=== PATIENT | male | born 1955 | race Caucasian/White ===

== ENCOUNTER 2016-12-24 08:51 | Day surgery (SDC) | payer BC ==
[~2016-12-24] VITALS: Ht 180.3 cm; Wt 170.5 kg
[~2016-12-24 08:51] MED LIST: ADIPEX-P37.5 MG PO; ASPI325T6 PO; BYSTOLIC10 MG PO; CELEXA 20MG20 MG/TAB PO; FERROUS SU325 MG/TAB PO; FOLIC ACID 40400 MCG PO; MILK OF MA400 MG/52 PO; NORCO 325 MG-7.1 TAB PO; OSTEO-BI-FLEX 21 TAB PO; PAXIL 20MG20 MG PO; ROXICODONE 55 MG/TAB PO; SENOKOT8.6 MG PO; SYNTHROID0.1 MG/TAB PO; SYNTHROID0.175 MG PO; SYNTHROID0.2 MG/TAB PO; TYLENOL 500MG500 MG PO; VITAMIN C PUR1000 MG PO; VITAMIN D1000 IU PO; VITAMINC1000TA PO
[2016-12-24 09:16] LABS: HEMATOCRIT 46.3 % (42.0-52.0); HEMOGLOBIN 15.8 g/dl (13.5-18.0); MEAN CELL VOLUME 95 fl (80.0-100.0); MEAN CORPUSCULAR HEMOGLOBIN 33 pg (27.0-31.0); MEAN CORPUSCULAR HGB CONC 34 g/dl (33.0-37.0); MEAN PLATELET VOLUME 11.6 fl (7.4-10.4); PLATELET COUNT 196 K/mm3 (130-400); RED BLOOD COUNT 4.86 M/mm3 (4.20-5.60); REDCELL DISTRIBUTION WIDTH-CV 12.3 % (11.5-14.5); WHITE BLOOD COUNT 6.2 K/mm3 (4.8-10.8)
[2016-12-24 09:32] LABS: CALCIUM 9.4 mg/dL (8.4-10.2); CREATININE, serum 1.13 mg/dL (0.66-1.25); POTASSIUM 4.6 mmol/L (3.4-5.0)
[2016-12-24] MEDS ORDERED: ASPIRIN E.C. 8181 MG PO (09:41)
[2016-12-24] MEDS ORDERED: TAMBOCOR150 MG PO (09:42)
[2016-12-24] MEDS ORDERED: XARELTO20 MG PO (09:43)
[2016-12-24 10:01] VITALS: BP 123/74; PULSE 76; TEMP 97.5
[2016-12-24 10:25] VITALS: BP 101/69; PULSE 51
[2016-12-24 10:30] VITALS: BP 113/70; PULSE 56
[2016-12-24 10:40] VITALS: BP 110/67; PULSE 54
[2016-12-24 10:59] VITALS: BP 113/66; PULSE 54
[2016-12-24 11:29] VITALS: BP 121/89; PULSE 60
== END 2016-12-24 11:40 | disposition home or self-care (01) ==
LOC: COL.RAD 08:51
PROVIDERS: Internal Medicine Cardiovascular Disease
DX: I48.0 Paroxysmal atrial fibrillation (principal); I10 Essential (primary) hypertension; Z79.82 Long term (current) use of aspirin; Z79.899 Other long term (current) drug therapy; Z87.891 Personal history of nicotine dependence; Z79.01 Long term (current) use of anticoagulants
CPT/HCPCS: J2704

== ENCOUNTER 2018-02-03 12:37 | Day surgery (SDC) | payer BC ==
[~2018-02-03] VITALS: Ht 180.3 cm; Wt 179.9 kg
[~2018-02-03 12:37] MED LIST changes: +ASPIRIN E.C. 8181 MG PO; +TAMBOCOR150 MG PO; +XARELTO20 MG PO
[2018-02-03 13:01] VITALS: BP 125/85; PULSE 41; TEMP 98.9
[2018-02-03 15:25] VITALS: BP 127/71; PULSE 47; TEMP 97.9
[2018-02-03 15:40] VITALS: BP 131/67; PULSE 42
[2018-02-03 15:55] VITALS: BP 131/80; PULSE 43
[2018-02-03 16:24] VITALS: BP 121/68; PULSE 41
== END 2018-02-03 16:35 | disposition home or self-care (01) ==
LOC: SDCO 12:37
DX: Z12.11 Encounter for screening for malignant neoplasm of colon (principal); Z86.010 Personal history of colon polyps; D12.8 Benign neoplasm of rectum; K57.30 Diverticulosis of large intestine without perforation or abscess without bleeding; K52.9 Noninfective gastroenteritis and colitis, unspecified; K64.0 First degree hemorrhoids; I10 Essential (primary) hypertension; E03.9 Hypothyroidism, unspecified; I48.91 Unspecified atrial fibrillation
CPT/HCPCS: OP; J2250; J2704; J7120

== ENCOUNTER 2018-12-21 08:35 | Inpatient (IN) | payer BC ==
[~2018-12-21] VITALS: Ht 180.3 cm; Wt 198.8 kg
[2018-12-21 08:55] VITALS: BP 122/83; PULSE 88; TEMP 98.1
[2018-12-21] MEDS ORDERED: VITAMIN D31000 I1 PO ×2 (09:31→09:32)
[2018-12-21 09:48] LABS: BASO # 0.1 (0.0-0.2); BASO % 0.9 % (0.0-2.0); EOS # 0.1 (0.0-0.7); EOS % 1.4 % (0-4.0); GRAN # 3.8 (1.4-6.5); GRAN % 64.4 % (42.2-75.2); HEMATOCRIT 45.5 % (42.0-52.0); HEMOGLOBIN 15.8 g/dl (13.5-18.0); LYMPH # 1.5 (1.2-3.4); LYMPH % 24.8 % (20.0-51.0); MEAN CELL VOLUME 95 fl (80.0-100.0); MEAN CORPUSCULAR HEMOGLOBIN 33 pg (27.0-31.0); MEAN CORPUSCULAR HGB CONC 35 g/dl (33.0-37.0); MEAN PLATELET VOLUME 11.5 fl (7.4-10.4); MONO # 0.5 (0.1-0.6); MONO % 8.2 % (1.7-9.3); PLATELET COUNT 170 K/mm3 (130-400); RED BLOOD COUNT 4.77 M/mm3 (4.20-5.60)
[2018-12-21 09:51] LABS: INR 1.2 (0.8-3.0); PROTHROMBIN TIME 13.8 SECONDS (9.7-12.8)
[2018-12-21 09:55] LABS: ALBUMIN 3.8 gm/dL (3.5-5.0); BILIRUBIN,TOTAL 0.4 mg/dL (0.0-1.0); CALCIUM 9.2 mg/dL (8.4-10.2); CREATININE, serum 0.89 mg/dL (0.66-1.25); MAGNESIUM 1.9 mg/dL (1.6-2.3); POTASSIUM 4.7 mmol/L (3.4-5.0); TOTAL PROTEIN 7.1 gm/dL (6.4-8.2)
[2018-12-21] MEDS ORDERED: BYSTOLIC10 MG PO (10:58)
[2018-12-21] MEDS ORDERED: TAMBOCOR150 MG PO (10:58)
--- NOTE | 2018-12-21 11:31 | NUR ---
Pt was admitted to room 352 for sotalol initation. He is awake and A/Ox4. Saline lock placed in left FA. Meds/allergies/pharm reviewed. Tele applied. Pt and were oriented to room and to staff, expressed understanding.
--- NOTE | 2018-12-21 11:37 | NUR ---
First visit from the internet marketing executive. No needs right now.
[2018-12-21 12:18] VITALS: BP 123/57; PULSE 77; TEMP 98
--- NOTE | 2018-12-21 12:57 | NUR ---
Report from Michelle PEDERSEN.
--- NOTE | 2018-12-21 15:06 | NUR ---
PT RESTING IN RECLINER ON PHONE. PT INDEPENDENT IN HALLS AND ROOM.
[2018-12-21 16:53] VITALS: BP 136/83; PULSE 79; TEMP 98.3
--- NOTE | 2018-12-21 18:47 | NUR ---
REPORT TO RAINA PEDERSEN.
--- NOTE | 2018-12-21 19:28 | NUR ---
Shift assessment complete. Pt resting in bedside recliner, awake, a&o, cooperative c cares. Pt reports being "a little light-headed", denies any other c/o. Reviewed side effects of sotalol, pt verbalized understanding. INT patent. Tele in place. Pt denies needs. Call light in reach, will monitor.
[2018-12-21 20:07] VITALS: BP 120/71; PULSE 60; TEMP 99.1
[2018-12-21 23:46] VITALS: BP 135/93; PULSE 76; TEMP 98.3
[2018-12-22 04:45] VITALS: BP 132/95; PULSE 78; TEMP 98.2
[2018-12-22 07:23] LABS: BASO # 0.1 (0.0-0.2); EOS # 0.1 (0.0-0.7); EOS % 1.9 % (0-4.0); GRAN # 3.6 (1.4-6.5); GRAN % 56.7 % (42.2-75.2); HEMATOCRIT 46.1 % (42.0-52.0); HEMOGLOBIN 15.8 g/dl (13.5-18.0); LYMPH # 1.8 (1.2-3.4); LYMPH % 28.8 % (20.0-51.0); MEAN CELL VOLUME 96 fl (80.0-100.0); MEAN CORPUSCULAR HEMOGLOBIN 33 pg (27.0-31.0); MEAN CORPUSCULAR HGB CONC 34 g/dl (33.0-37.0); MEAN PLATELET VOLUME 11.7 fl (7.4-10.4); MONO # 0.7 (0.1-0.6); MONO % 11.3 % (1.7-9.3); PLATELET COUNT 155 K/mm3 (130-400); RED BLOOD COUNT 4.82 M/mm3 (4.20-5.60); REDCELL DISTRIBUTION WIDTH-CV 12.1 % (11.5-14.5)
[2018-12-22 07:43] LABS: CALCIUM 8.9 mg/dL (8.4-10.2); CREATININE, serum 0.99 mg/dL (0.66-1.25); MAGNESIUM 2.2 mg/dL (1.6-2.3); POTASSIUM 4.7 mmol/L (3.4-5.0)
[2018-12-22 07:45] VITALS: BP 116/80; PULSE 51; TEMP 98.3
--- NOTE | 2018-12-22 09:20 | NUR ---
Pt is awake and A/Ox4, sitting up in the recliner. He denies pain or discomfort. Saline lock to left FA is free of complications. Heart remains irregular, Afib per tele. Pt is up as tolerated. Denies any other needs, will monitor.
[2018-12-22 11:47] VITALS: BP 112/64; PULSE 58; TEMP 99
--- NOTE | 2018-12-22 14:52 | NUR ---
SW met with patient about discharge planning. Patient lives independently at home with his . Patient's PCP is Dr Sam and he obtains prescriptions from [facility], [place]. Patient uses CPAP at home but no other DME is used and he does not use home health services. Patient does not have a DPOA and is not interested in that at this time.
[2018-12-22 15:39] VITALS: BP 111/85; PULSE 45; TEMP 97.9
--- NOTE | 2018-12-22 18:22 | NUR ---
Pt has had an overall uneventful shift. He continues to deny pain or discomfort. Ambulating in hallways without difficulty.
--- NOTE | 2018-12-22 19:40 | NUR ---
Shift assessment complete. PT resting in bedside recliner, awake, a&o, cooperative c cares. Pt denies pain or any other c/o. INT patent. Tele in place. Pt denies needs. Call light in reach, will monitor.
[2018-12-22 19:45] VITALS: BP 137/74; PULSE 68; TEMP 99
[2018-12-22 23:32] VITALS: BP 121/60; PULSE 84; TEMP 98.1
[2018-12-23 04:38] VITALS: BP 136/87; PULSE 81; TEMP 98.6
--- NOTE | 2018-12-23 07:29 | NUR ---
Sleeping soundly at this time. CPAP in place. The patient is resting on his side. The call light is in place.
--- NOTE | 2018-12-23 07:30 | NUR ---
Pt resting in chair.VSS.Pt on telemetry. Heart rate irregular at 82bpm.NPO status for cardioversion today.Reports no pain. INT intact, no redness or swelling. Pt reports no acute concerns at this time.
[2018-12-23 07:35] VITALS: BP 116/79; PULSE 82; TEMP 98.2
[2018-12-23 07:38] LABS: BASO # 0.1 (0.0-0.2); BASO % 0.7 % (0.0-2.0); EOS # 0.1 (0.0-0.7); EOS % 1.3 % (0-4.0); GRAN % 59.5 % (42.2-75.2); HEMATOCRIT 47.8 % (42.0-52.0); HEMOGLOBIN 16.7 g/dl (13.5-18.0); LYMPH % 28.8 % (20.0-51.0); MEAN CELL VOLUME 95 fl (80.0-100.0); MEAN CORPUSCULAR HEMOGLOBIN 33 pg (27.0-31.0); MEAN CORPUSCULAR HGB CONC 35 g/dl (33.0-37.0); MEAN PLATELET VOLUME 11.4 fl (7.4-10.4); MONO # 0.6 (0.1-0.6); MONO % 9.3 % (1.7-9.3); PLATELET COUNT 181 K/mm3 (130-400); RED BLOOD COUNT 5.01 M/mm3 (4.20-5.60); REDCELL DISTRIBUTION WIDTH-CV 12.3 % (11.5-14.5)
[2018-12-23 07:48] LABS: CALCIUM 9.1 mg/dL (8.4-10.2); CREATININE, serum 0.99 mg/dL (0.66-1.25); MAGNESIUM 2.2 mg/dL (1.6-2.3); POTASSIUM 4.5 mmol/L (3.4-5.0)
[2018-12-23] MEDS ORDERED: BYSTOLIC10 MG PO (08:56)
[2018-12-23] MEDS ORDERED: BETAPACE 120MG120 MG PO ×3 (08:57→09:09)
[2018-12-23] MEDS ORDERED: HYDROCORTISON28.4 GM TP (08:59)
--- NOTE | 2018-12-23 09:30 | NUR ---
Pt returns to room. Resting in bed after procedure.VSS. Pt voiced no concerns of pain. Refused food and water amd would like to rest.
[2018-12-23 09:45] VITALS: BP 121/74; PULSE 68; TEMP 9806
--- NOTE | 2018-12-23 13:24 | NUR ---
Discharge education completed with the patient. All questions answered and the patient was escorted out via wheelchair.
== END 2018-12-23 13:25 | disposition home or self-care (01) | DRG 309 ==
LOC: MEDICAL 08:35
PROVIDERS: ADMIT Internal Medicine Cardiovascular Disease
PROC: 5A2204Z Restoration of Cardiac Rhythm, Single (ICD-10-PCS; principal; 2018-12-23)
DX: I48.0 Paroxysmal atrial fibrillation (principal); Z68.44 Body mass index [BMI] 60.0-69.9, adult; I48.92 Unspecified atrial flutter; E66.01 Morbid (severe) obesity due to excess calories; I10 Essential (primary) hypertension; Z87.891 Personal history of nicotine dependence
CPT/HCPCS: J2250; J2704

== ENCOUNTER 2019-02-04 10:24 | Day surgery (SDC) | payer BC ==
[2019-02-04] VITALS (9 sets, daily range): BP systolic 115–153; BP diastolic 84–102; PULSE 60–71
[~2019-02-04 10:24] MED LIST changes: +BETAPACE 120MG120 MG PO; +HYDROCORTISON28.4 GM TP; +VITAMIN D31000 I1 PO
[2019-02-04] MEDS ORDERED: PACERONE200 MG PO (10:53)
[2019-02-04] MEDS ORDERED: VASOTEC 5MG5 MG/TAB PO (10:54)
[2019-02-04 11:26] LABS: HEMATOCRIT 44.5 % (42.0-52.0); HEMOGLOBIN 15.5 g/dl (13.5-18.0); MEAN CELL VOLUME 95 fl (80.0-100.0); MEAN CORPUSCULAR HEMOGLOBIN 33 pg (27.0-31.0); MEAN CORPUSCULAR HGB CONC 35 g/dl (33.0-37.0); PLATELET COUNT 151 K/mm3 (130-400); RED BLOOD COUNT 4.68 M/mm3 (4.20-5.60); REDCELL DISTRIBUTION WIDTH-CV 12.1 % (11.5-14.5)
[2019-02-04 11:29] LABS: PROTHROMBIN TIME 11.7 SECONDS (9.7-12.8)
[2019-02-04 11:35] LABS: CALCIUM 9.2 mg/dL (8.4-10.2); CREATININE, serum 0.99 (0.66-1.25); POTASSIUM 4.2 mmol/L (3.4-5.0)
--- NOTE | 2019-02-04 13:23 | NUR ---
ALL MEDICATIONS GIVEN WITH VERBAL ORDER AND READBACK WITH MD. SEE MERGE FOR ALL MEDICATION ADMIN TIMES. SEE MERGE FOR ALL RASS ASSESSMENTS DURING AND AFTER PROCEDURE. POSITIVE BARBEAU'S TEST IN THE RIGHT WRIST. NITRO PASTE APPLIED, REFER TO MAR.
--- NOTE | 2019-02-04 14:20 | NUR ---
Pt back to room 10 post cardiac cath. VSs and Ax0x3. Right radial site c/d/i and soft on palpation. Pt denies pain. resting comfortably in bed at this time.
--- NOTE | 2019-02-04 16:30 | NUR ---
Vitals stable post cardiac cath. 14cc of air removed from tr band site c/d/i. Pt tolerating fluids po without issue. Discharge instructions reviewed and signed. 20g removed from left ac intact. Pt wheeled out safely with present as line driver.
== END 2019-02-04 16:30 | disposition home or self-care (01) ==
LOC: COL.CAR 10:24
PROVIDERS: Internal Medicine Cardiovascular Disease
DX: I42.0 Dilated cardiomyopathy (principal); I10 Essential (primary) hypertension; E66.9 Obesity, unspecified; G47.33 Obstructive sleep apnea (adult) (pediatric); I48.0 Paroxysmal atrial fibrillation
CPT/HCPCS: C1769; J1644; J2250; J3010; Q9967

== ENCOUNTER → 2024-01-20 | Outpatient (CLI) | payer MEDICARE ==
[~2024-01-20] MED LIST changes: +PACERONE200 MG PO; +VASOTEC 5MG5 MG/TAB PO
== END ==
LOC: MHCPAIN 13:35
DX: M53.3 Sacrococcygeal disorders, not elsewhere classified (principal); M48.062 Spinal stenosis, lumbar region with neurogenic claudication; M48.10 Ankylosing hyperostosis [Forestier], site unspecified
CPT/HCPCS: G0463

== ENCOUNTER → 2024-02-23 | Outpatient (CLI) | payer MEDICARE ==
[~2024-02-23] MED LIST changes: +Iohexol 300 - 10 ML VIAL ONE; +Triamcinolone 40 MG/ML 1 ML VIAL ONE
== END ==
LOC: MHCPAIN 13:17
DX: M54.50 Low back pain, unspecified (principal); M53.3 Sacrococcygeal disorders, not elsewhere classified
CPT/HCPCS: J3301; Q9967

== ENCOUNTER → 2024-03-25 | Outpatient (CLI) | payer MEDICARE ==
[~2024-03-25] MED LIST changes: -Iohexol 300 - 10 ML VIAL ONE; -Triamcinolone 40 MG/ML 1 ML VIAL ONE
== END ==
LOC: MHCPAIN 15:30
DX: M53.3 Sacrococcygeal disorders, not elsewhere classified (principal); M48.062 Spinal stenosis, lumbar region with neurogenic claudication; M48.10 Ankylosing hyperostosis [Forestier], site unspecified
CPT/HCPCS: G0463

== ENCOUNTER → 2024-04-20 | Outpatient (CLI) | payer MEDICARE | LOC: MHCPAIN 15:27 | DX: M53.3 Sacrococcygeal disorders, not elsewhere classified (principal); M48.062 Spinal stenosis, lumbar region with neurogenic claudication; M47.816 Spondylosis without myelopathy or radiculopathy, lumbar region; M48.10 Ankylosing hyperostosis [Forestier], site unspecified | CPT/HCPCS: G0463 ==

== ENCOUNTER → 2024-06-17 | Outpatient (CLI) | payer MEDICARE | LOC: MHCPAIN 10:31 | DX: M48.062 Spinal stenosis, lumbar region with neurogenic claudication (principal); M47.816 Spondylosis without myelopathy or radiculopathy, lumbar region; M53.3 Sacrococcygeal disorders, not elsewhere classified; M48.10 Ankylosing hyperostosis [Forestier], site unspecified | CPT/HCPCS: G0463 ==

== ENCOUNTER → 2024-08-02 | Outpatient (CLI) | payer MEDICARE | LOC: MHCPAIN 11:01 | DX: M48.062 Spinal stenosis, lumbar region with neurogenic claudication (principal); M47.816 Spondylosis without myelopathy or radiculopathy, lumbar region; M53.3 Sacrococcygeal disorders, not elsewhere classified; M48.16 Ankylosing hyperostosis [Forestier], lumbar region | CPT/HCPCS: G0463 ==

== ENCOUNTER → 2024-08-26 | Outpatient (CLI) | payer MEDICARE ==
[~2024-08-26] MED LIST changes: +Iohexol 300 - 10 ML VIAL ONE; +Lidocaine PF 2% (20 MG/ML) 2 ML VIAL ONE
== END ==
LOC: MHCPAIN 12:57
DX: M54.16 Radiculopathy, lumbar region (principal)
CPT/HCPCS: J1100; Q9967